=== PATIENT | male | born 1980 | race Caucasian/White ===

== ENCOUNTER → 2018-05-05 | Outpatient (CLI) | payer BC | LOC: M WUC 14:35 | DX: S20.212A Contusion of left front wall of thorax, initial encounter (principal); X58.XXXA Exposure to other specified factors, initial encounter; Y92.9 Unspecified place or not applicable | CPT/HCPCS: 71101 ==

== ENCOUNTER → 2020-01-16 | Outpatient (CLI) | payer OTHER ==
[~2020-01-16] MED LIST: AMBI10TA OR; ATIV1TAB2 OR; BACT800T5 PO; BISO10TA6 PO; BUSP10TA PO; FLEXERIL PO; NAPR500T OR; OXYC1TAB23 PO; PAXI20TA3 PO; PRED5TAB OR; PROT1TAB2 PO; SUDA30TA OR; ZYVO100T PO
--- NOTE | 2020-01-19 16:26 | SLEEPHOME ---
DATE OF PROCEDURE: 01/16/2020 ORDERED BY: Patsy Daley Diagnostic home sleep testing was performed due to concern for the obstructive sleep apnea syndrome. For testing a nocturnal T3 respiratory monitoring device was used. Continuous record was made of pulse, oxygen saturation, airflow, chest and abdominal strain, and body position. 9 hours and 59 minutes of data were reviewed. There were 8 hours and 53 minutes marked as time in bed. During the interval marked time in bed, there were 86 respiratory events identified of 10 seconds in duration or greater for a respiratory event index of 9.7. The events were primarily obstructive; 9 mixed and central apneas were seen. Baseline pulse rate 52. Pulse rate ranged 42-103. Baseline saturation 94%. Saturations fell to 87%. Testing was performed in both the supine and nonsupine positions. IMPRESSION: Abnormal home sleep testing with repetitive respiratory events and oxygen desaturations to 87% with a respiratory event index of 9.7 is consistent with the obstructive sleep apnea syndrome. RECOMMENDATIONS: The patient should be encouraged to undergo formal sleep evaluation.
== END ==
LOC: M SLEEP HO 10:01
PROVIDERS: ATTEND Family Medicine
DX: R07.9 Chest pain, unspecified (principal)

== ENCOUNTER 2021-04-12 23:12 | Emergency (ER) | payer OTHER ==
[~2021-04-12] VITALS: Ht 185.4 cm; Wt 85.3 kg
[2021-04-12 23:12] VITALS: BP 141/74
[2021-04-12] MEDS ORDERED: ZYRTTAB8 PO (23:24)
[2021-04-12] MEDS ORDERED: ATEN25TA PO (23:24)
== END 2021-04-13 02:35 | disposition left against medical advice (07) ==
LOC: M ED 23:12
DX: Z53.21 Procedure and treatment not carried out due to patient leaving prior to being seen by health care provider (principal)

== ENCOUNTER → 2022-09-27 | Outpatient (REF) | payer OTHER ==
[~2022-09-27] MED LIST changes: +ATEN25TA PO; +ZYRTTAB8 PO
== END ==
LOC: M SFHCDERM 14:57
PROVIDERS: ATTEND Physician Assistant
DX: B35.4 Tinea corporis (principal)